=== PATIENT | male | born 1955 | race Caucasian/White ===

== ENCOUNTER 2019-04-09 08:50 | Day surgery (SDC) | payer MEDICAID ==
[2019-04-09] MEDS ORDERED: LIDOcaine 2% 5ml jelly ONE (09:48)
== END 2019-04-09 11:00 | disposition home or self-care (01) ==
LOC: WOUND CARE 08:50
PROVIDERS: ATTEND Surgery
DX: T87.81 Dehiscence of amputation stump (principal); L97.512 Non-pressure chronic ulcer of other part of right foot with fat layer exposed; M19.90 Unspecified osteoarthritis, unspecified site; Y83.5 Amputation of limb(s) as the cause of abnormal reaction of the patient, or of later complication, without mention of misadventure at the time of the procedure
CPT/HCPCS: 36416; 82948; 97597; A6209; A6223; L3260; A4663; A6021; A6446

== ENCOUNTER 2019-04-16 11:05 | Outpatient (CLI) | payer MEDICAID ==
--- NOTE | 2019-04-16 12:00 | NUR ---
BLOOD GLUCOSE 149. FAILED TO CROSS OVER TO MEDITECH - READING DOCUMENTED IN WOUND EXPERT ON 04/16/19 UNDER THE SAME V#.
== END 2019-04-16 11:52 | disposition home or self-care (01) ==
LOC: WOUND CARE 11:05 → EDSTATUS 11:30 → WOUND CARE 11:52
PROVIDERS: ATTEND Surgery
DX: T87.81 Dehiscence of amputation stump (principal); L97.512 Non-pressure chronic ulcer of other part of right foot with fat layer exposed; M19.90 Unspecified osteoarthritis, unspecified site; Y83.5 Amputation of limb(s) as the cause of abnormal reaction of the patient, or of later complication, without mention of misadventure at the time of the procedure
CPT/HCPCS: 36416; A6209; G0463; L3260; A4663; A6021; A6154; A6446

== ENCOUNTER 2019-04-26 11:15 | Day surgery (SDC) | payer MEDICAID | END 2019-04-26 12:58 | disposition home or self-care (01) | LOC: WOUND CARE 11:15 | PROVIDERS: ATTEND Surgery | DX: T87.81 Dehiscence of amputation stump (principal); L97.512 Non-pressure chronic ulcer of other part of right foot with fat layer exposed; M19.90 Unspecified osteoarthritis, unspecified site; Y83.5 Amputation of limb(s) as the cause of abnormal reaction of the patient, or of later complication, without mention of misadventure at the time of the procedure | CPT/HCPCS: 11042; 36416; 82948; A6209; A4663; A6021; A6154; A6446 ==

== ENCOUNTER 2019-05-04 10:12 | Outpatient (CLI) | payer MEDICAID | END 2019-05-04 11:20 | disposition home or self-care (01) | LOC: WOUND CARE 10:12 → EDSTATUS 10:30 → WOUND CARE 11:20 | PROVIDERS: ATTEND Surgery | DX: T87.81 Dehiscence of amputation stump (principal); L97.512 Non-pressure chronic ulcer of other part of right foot with fat layer exposed; M19.90 Unspecified osteoarthritis, unspecified site; Y83.5 Amputation of limb(s) as the cause of abnormal reaction of the patient, or of later complication, without mention of misadventure at the time of the procedure | CPT/HCPCS: 36416; 82948; A6209; G0463; A4663; A6446 ==

== ENCOUNTER 2019-05-10 10:05 | Day surgery (SDC) | payer MEDICAID ==
[2019-05-10] MEDS ORDERED: LIDOcaine 2% 5ml jelly ONE (11:17)
== END 2019-05-10 12:25 | disposition home or self-care (01) ==
LOC: WOUND CARE 10:05
PROVIDERS: ATTEND Surgery
DX: T87.81 Dehiscence of amputation stump (principal); L97.512 Non-pressure chronic ulcer of other part of right foot with fat layer exposed; M19.90 Unspecified osteoarthritis, unspecified site; Y83.5 Amputation of limb(s) as the cause of abnormal reaction of the patient, or of later complication, without mention of misadventure at the time of the procedure
CPT/HCPCS: 36416; 82948; 97597

== ENCOUNTER 2019-05-17 09:55 | Day surgery (SDC) | payer MEDICAID ==
[2019-05-17] MEDS ORDERED: LIDOcaine 2% 5ml jelly ONE (10:09)
== END 2019-05-17 11:00 | disposition home or self-care (01) ==
LOC: WOUND CARE 09:55
PROVIDERS: ATTEND Surgery
DX: T87.81 Dehiscence of amputation stump (principal); L97.512 Non-pressure chronic ulcer of other part of right foot with fat layer exposed; M19.90 Unspecified osteoarthritis, unspecified site; Y83.5 Amputation of limb(s) as the cause of abnormal reaction of the patient, or of later complication, without mention of misadventure at the time of the procedure
CPT/HCPCS: 36416; 82948; 97597; A6209; A4663; A6021; A6154; A6446

== ENCOUNTER 2019-05-25 09:10 | Day surgery (SDC) | payer MEDICAID | END 2019-05-25 11:05 | disposition home or self-care (01) | LOC: WOUND CARE 09:10 | PROVIDERS: ATTEND Surgery | DX: T87.81 Dehiscence of amputation stump (principal); L97.512 Non-pressure chronic ulcer of other part of right foot with fat layer exposed; M19.90 Unspecified osteoarthritis, unspecified site; Y83.5 Amputation of limb(s) as the cause of abnormal reaction of the patient, or of later complication, without mention of misadventure at the time of the procedure | CPT/HCPCS: 36416; 82948; 97597; A4663; A6021; A6154; A6212; A6446 ==

== ENCOUNTER 2019-06-01 09:30 | Day surgery (SDC) | payer MEDICAID | END 2019-06-01 11:22 | disposition home or self-care (01) | LOC: WOUND CARE 09:30 | PROVIDERS: ATTEND Surgery | DX: T87.81 Dehiscence of amputation stump (principal); L97.512 Non-pressure chronic ulcer of other part of right foot with fat layer exposed; M19.90 Unspecified osteoarthritis, unspecified site; Y83.5 Amputation of limb(s) as the cause of abnormal reaction of the patient, or of later complication, without mention of misadventure at the time of the procedure | CPT/HCPCS: 15275; 36416; 82948; A6209; A6222; Q4186; A4663; A6446 ==

== ENCOUNTER 2019-06-13 09:53 | Day surgery (SDC) | payer MEDICAID | END 2019-06-13 11:04 | disposition home or self-care (01) | LOC: WOUND CARE 09:53 | PROVIDERS: ATTEND Surgery | DX: T87.81 Dehiscence of amputation stump (principal); L97.512 Non-pressure chronic ulcer of other part of right foot with fat layer exposed; M19.90 Unspecified osteoarthritis, unspecified site; Y83.5 Amputation of limb(s) as the cause of abnormal reaction of the patient, or of later complication, without mention of misadventure at the time of the procedure | CPT/HCPCS: 15275; 36416; 82948; A6209; A6222; Q4186; A4663; A6250; A6446 ==

== ENCOUNTER 2019-06-20 09:52 | Outpatient (CLI) | payer MEDICAID | END 2019-06-20 11:32 | disposition home or self-care (01) | LOC: WOUND CARE 09:52 → EDSTATUS 10:00 → WOUND CARE 11:32 | PROVIDERS: ATTEND Surgery | DX: T87.81 Dehiscence of amputation stump (principal); E11.621 Type 2 diabetes mellitus with foot ulcer; L97.512 Non-pressure chronic ulcer of other part of right foot with fat layer exposed; E11.40 Type 2 diabetes mellitus with diabetic neuropathy, unspecified; E11.65 Type 2 diabetes mellitus with hyperglycemia; M19.90 Unspecified osteoarthritis, unspecified site; Y83.5 Amputation of limb(s) as the cause of abnormal reaction of the patient, or of later complication, without mention of misadventure at the time of the procedure | CPT/HCPCS: 36416; 82948; A6209; A6222; G0463; A4663; A6021; A6446 ==

== ENCOUNTER 2019-06-25 10:55 | Day surgery (SDC) | payer MEDICAID ==
[2019-06-25] MEDS ORDERED: LIDOcaine 2% 5ml jelly ONE (11:12)
== END 2019-06-25 11:57 | disposition home or self-care (01) ==
LOC: WOUND CARE 10:55
PROVIDERS: ATTEND Surgery
DX: T87.81 Dehiscence of amputation stump (principal); E11.621 Type 2 diabetes mellitus with foot ulcer; L97.512 Non-pressure chronic ulcer of other part of right foot with fat layer exposed; E11.40 Type 2 diabetes mellitus with diabetic neuropathy, unspecified; E11.65 Type 2 diabetes mellitus with hyperglycemia; M19.90 Unspecified osteoarthritis, unspecified site; Y83.5 Amputation of limb(s) as the cause of abnormal reaction of the patient, or of later complication, without mention of misadventure at the time of the procedure
CPT/HCPCS: 15275; 36416; 82948; A6209; A6222; Q4186; A4663; A6250; A6446

== ENCOUNTER 2019-07-04 10:00 | Outpatient (CLI) | payer MEDICAID ==
[2019-07-04] MEDS ORDERED: LIDOcaine 2% 5ml jelly ONE (10:16)
== END 2019-07-04 11:36 | disposition home or self-care (01) ==
LOC: WOUND CARE 10:00 → EDSTATUS 10:00 → WOUND CARE 11:36
PROVIDERS: ATTEND Surgery
DX: T87.81 Dehiscence of amputation stump (principal); E11.621 Type 2 diabetes mellitus with foot ulcer; L97.512 Non-pressure chronic ulcer of other part of right foot with fat layer exposed; E11.40 Type 2 diabetes mellitus with diabetic neuropathy, unspecified; E11.65 Type 2 diabetes mellitus with hyperglycemia; M19.90 Unspecified osteoarthritis, unspecified site; Y83.5 Amputation of limb(s) as the cause of abnormal reaction of the patient, or of later complication, without mention of misadventure at the time of the procedure
CPT/HCPCS: 36416; 82948; G0463; A4663; A6021; A6154; A6212; A6446

== ENCOUNTER 2019-07-10 10:20 | Day surgery (SDC) | payer MEDICAID ==
[2019-07-10] MEDS ORDERED: LIDOcaine/PRILOcaine 5gm cream TP ONE (11:04)
== END 2019-07-10 12:41 | disposition home or self-care (01) ==
LOC: WOUND CARE 10:20
PROVIDERS: ATTEND Surgery
DX: T87.81 Dehiscence of amputation stump (principal); E11.621 Type 2 diabetes mellitus with foot ulcer; L97.512 Non-pressure chronic ulcer of other part of right foot with fat layer exposed; E11.40 Type 2 diabetes mellitus with diabetic neuropathy, unspecified; E11.65 Type 2 diabetes mellitus with hyperglycemia; M19.90 Unspecified osteoarthritis, unspecified site; Y83.5 Amputation of limb(s) as the cause of abnormal reaction of the patient, or of later complication, without mention of misadventure at the time of the procedure
CPT/HCPCS: 36416; 82948; 97597; A6209; A4663; A6021; A6154; A6446

== ENCOUNTER 2019-07-18 08:22 | Day surgery (SDC) | payer MEDICAID ==
[2019-07-18] MEDS ORDERED: LIDOcaine 2% 5ml jelly ONE (09:37)
== END 2019-07-18 10:34 | disposition home or self-care (01) ==
LOC: WOUND CARE 08:22
PROVIDERS: ATTEND Surgery
DX: T87.81 Dehiscence of amputation stump (principal); E11.621 Type 2 diabetes mellitus with foot ulcer; L97.512 Non-pressure chronic ulcer of other part of right foot with fat layer exposed; E11.40 Type 2 diabetes mellitus with diabetic neuropathy, unspecified; E11.65 Type 2 diabetes mellitus with hyperglycemia; M19.90 Unspecified osteoarthritis, unspecified site; Y83.5 Amputation of limb(s) as the cause of abnormal reaction of the patient, or of later complication, without mention of misadventure at the time of the procedure
CPT/HCPCS: 15275; 36416; 82948; A6209; A6222; Q4186; A4663; A6250; A6446

== ENCOUNTER 2019-08-02 10:25 | Day surgery (SDC) | payer MEDICAID ==
[2019-08-02] MEDS ORDERED: LIDOcaine 2% 5ml jelly ONE (10:44)
== END 2019-08-02 11:45 | disposition home or self-care (01) ==
LOC: WOUND CARE 10:25
PROVIDERS: ATTEND Nurse Practitioner Family
DX: T87.81 Dehiscence of amputation stump (principal); E11.621 Type 2 diabetes mellitus with foot ulcer; L97.512 Non-pressure chronic ulcer of other part of right foot with fat layer exposed; E11.40 Type 2 diabetes mellitus with diabetic neuropathy, unspecified; E11.65 Type 2 diabetes mellitus with hyperglycemia; M19.90 Unspecified osteoarthritis, unspecified site; Y83.5 Amputation of limb(s) as the cause of abnormal reaction of the patient, or of later complication, without mention of misadventure at the time of the procedure
CPT/HCPCS: 36416; 82948; 97597; A6209; A4663; A6021; A6154; A6234; A6446

== ENCOUNTER 2019-08-08 09:50 | Day surgery (SDC) | payer MEDICAID | END 2019-08-08 12:00 | disposition home or self-care (01) | LOC: WOUND CARE 09:50 | PROVIDERS: ATTEND Surgery | DX: T87.81 Dehiscence of amputation stump (principal); E11.621 Type 2 diabetes mellitus with foot ulcer; L97.512 Non-pressure chronic ulcer of other part of right foot with fat layer exposed; E11.40 Type 2 diabetes mellitus with diabetic neuropathy, unspecified; E11.65 Type 2 diabetes mellitus with hyperglycemia; M19.90 Unspecified osteoarthritis, unspecified site; Y83.5 Amputation of limb(s) as the cause of abnormal reaction of the patient, or of later complication, without mention of misadventure at the time of the procedure | CPT/HCPCS: 82948; G0463; A4663; A6234; A6446 ==

== ENCOUNTER 2019-08-22 10:05 | Outpatient (CLI) | payer MEDICAID | END 2019-08-22 11:30 | disposition home or self-care (01) | LOC: WOUND CARE 10:05 | PROVIDERS: ATTEND Surgery | DX: T87.81 Dehiscence of amputation stump (principal); E11.621 Type 2 diabetes mellitus with foot ulcer; L97.512 Non-pressure chronic ulcer of other part of right foot with fat layer exposed; E11.40 Type 2 diabetes mellitus with diabetic neuropathy, unspecified; E11.65 Type 2 diabetes mellitus with hyperglycemia; M19.90 Unspecified osteoarthritis, unspecified site; Y83.5 Amputation of limb(s) as the cause of abnormal reaction of the patient, or of later complication, without mention of misadventure at the time of the procedure | CPT/HCPCS: 36416; 82948; G0463; A4663 ==

== ENCOUNTER 2020-01-30 13:20 | Day surgery (SDC) | payer MEDICAID ==
[2020-01-30] MEDS ORDERED: LIDOcaine 2% 5ml jelly ONE (13:46)
[2020-01-30 14:34] LABS: BASOPHILS % (AUTO) 0.6 % (0-1); EOSINOPHILS # (AUTO) 0.1 X10'3 (0-0.9); EOSINOPHILS % (AUTO) 1.7 % (0-6); HEMATOCRIT 42.8 % (42.0-52.0); HEMOGLOBIN 14.6 g/dl (14.0-17.9); LYMPHOCYTES # (AUTO) 1.5 X10'3 (1.1-4.8); LYMPHOCYTES % (AUTO) 26.4 % (21-51); MEAN CORPUSCULAR HEMOGLOBIN 29.4 PG (27.0-31.0); MEAN CORPUSCULAR HGB CONC 34.1 g/dL (33.0-36.5); MEAN CORPUSCULAR VOLUME 86.4 FL (78-98); MONOCYTES # (AUTO) 0.4 X10'3 (0-0.9); MONOCYTES % (AUTO) 7.4 % (2-12); NEUTROPHILS # (AUTO) 3.5 X10'3 (1.8-7.7); NEUTROPHILS % (AUTO) 63.9 % (42-75); PLATELET COUNT 222 X10'3 (140-440); RED BLOOD COUNT 4.96 X10'6 (4.70-6.10); WHITE BLOOD COUNT 5.5 X10'3 (4.5-11.0)
[2020-01-30 14:45] LABS: ALANINE AMINOTRANSFERASE 22 U/L (12-78); ALBUMIN 4.1 G/DL (3.4-5.0); ALBUMIN/GLOBULIN RATIO 0.9 (1.1-1.5); ALKALINE PHOSPHATASE 79 IU/L (46-116); ANION GAP 10 (8-16); ASPARTATE AMINO TRANSFERASE 14 U/L (10-37); BILIRUBIN,TOTAL 0.5 MG/DL (0.1-1.0); BLOOD UREA NITROGEN 18 MG/DL (7-18); BUN/CREATININE RATIO 15.3 (5.4-32.0); C-REACTIVE PROTEIN 0.08 MG/DL (0.0-0.5); CALCIUM 9.3 MG/DL (8.5-10.1); CHLORIDE 102 MMOL/L (99-107); CREATININE 1.18 MG/DL (0.60-1.10); GLUCOSE 207 MG/DL (70-104); POTASSIUM 4.5 MMOL/L (3.5-5.1); SODIUM 139 MMOL/L (135-145); TOTAL CARBON DIOXIDE 26.9 MMOL/L (24-32); TOTAL PROTEIN 8.5 G/DL (6.4-8.2); eGFR 63 ML/MIN
[2020-01-30 15:09] LABS: HEMOGLOBIN A1C 9.3 % (4.5-6.2)
== END 2020-01-30 14:35 | disposition home or self-care (01) ==
LOC: WOUND CARE 13:20
PROVIDERS: ATTEND Nurse Practitioner
DX: T87.81 Dehiscence of amputation stump (principal); E11.621 Type 2 diabetes mellitus with foot ulcer; L97.512 Non-pressure chronic ulcer of other part of right foot with fat layer exposed; E11.40 Type 2 diabetes mellitus with diabetic neuropathy, unspecified; E11.65 Type 2 diabetes mellitus with hyperglycemia; M19.90 Unspecified osteoarthritis, unspecified site; Y83.5 Amputation of limb(s) as the cause of abnormal reaction of the patient, or of later complication, without mention of misadventure at the time of the procedure
CPT/HCPCS: 36415; 36416; 73620; 80053; 82948; 83036; 85025; 85651; 86140; 97597

== ENCOUNTER 2020-02-06 09:55 | Day surgery (SDC) | payer MEDICARE, MEDICAID | END 2020-02-06 12:25 | disposition home or self-care (01) | LOC: WOUND CARE 09:55 | PROVIDERS: ATTEND Nurse Practitioner | DX: T87.81 Dehiscence of amputation stump (principal); E11.621 Type 2 diabetes mellitus with foot ulcer; L97.512 Non-pressure chronic ulcer of other part of right foot with fat layer exposed; E11.40 Type 2 diabetes mellitus with diabetic neuropathy, unspecified; E11.65 Type 2 diabetes mellitus with hyperglycemia; M19.90 Unspecified osteoarthritis, unspecified site; Y83.5 Amputation of limb(s) as the cause of abnormal reaction of the patient, or of later complication, without mention of misadventure at the time of the procedure | CPT/HCPCS: 36416; 82948; 87070; 87075; 87102; 93970; 97597 ==

== ENCOUNTER 2020-02-15 10:24 | Day surgery (SDC) | payer MEDICARE, MEDICAID | END 2020-02-15 12:37 | disposition home or self-care (01) | LOC: WOUND CARE 10:24 | PROVIDERS: ATTEND Nurse Practitioner | DX: T87.89 Other complications of amputation stump (principal); E11.621 Type 2 diabetes mellitus with foot ulcer; L97.512 Non-pressure chronic ulcer of other part of right foot with fat layer exposed; E11.40 Type 2 diabetes mellitus with diabetic neuropathy, unspecified; E11.65 Type 2 diabetes mellitus with hyperglycemia; M19.90 Unspecified osteoarthritis, unspecified site; Y83.5 Amputation of limb(s) as the cause of abnormal reaction of the patient, or of later complication, without mention of misadventure at the time of the procedure | CPT/HCPCS: 36416; 82948; 93922; 93925; 97597 ==

== ENCOUNTER 2020-02-22 10:31 | Day surgery (SDC) | payer MEDICARE, MEDICAID | END 2020-02-22 12:25 | disposition home or self-care (01) | LOC: WOUND CARE 10:31 | PROVIDERS: ATTEND Nurse Practitioner | DX: T87.89 Other complications of amputation stump (principal); E11.621 Type 2 diabetes mellitus with foot ulcer; L97.512 Non-pressure chronic ulcer of other part of right foot with fat layer exposed; E11.40 Type 2 diabetes mellitus with diabetic neuropathy, unspecified; E11.65 Type 2 diabetes mellitus with hyperglycemia; M19.90 Unspecified osteoarthritis, unspecified site; Y83.5 Amputation of limb(s) as the cause of abnormal reaction of the patient, or of later complication, without mention of misadventure at the time of the procedure | CPT/HCPCS: 36416; 82948; 97597 ==

== ENCOUNTER 2020-03-28 10:50 | Day surgery (SDC) | payer MEDICARE, MEDICAID | END 2020-03-28 13:27 | disposition home or self-care (01) | LOC: WOUND CARE 10:50 | PROVIDERS: ATTEND Nurse Practitioner | DX: T87.89 Other complications of amputation stump (principal); E11.621 Type 2 diabetes mellitus with foot ulcer; L97.512 Non-pressure chronic ulcer of other part of right foot with fat layer exposed; E11.40 Type 2 diabetes mellitus with diabetic neuropathy, unspecified; E11.65 Type 2 diabetes mellitus with hyperglycemia; M19.90 Unspecified osteoarthritis, unspecified site; Y83.5 Amputation of limb(s) as the cause of abnormal reaction of the patient, or of later complication, without mention of misadventure at the time of the procedure | CPT/HCPCS: 36416; 82948; 97597 ==

== ENCOUNTER 2020-04-04 11:12 | Day surgery (SDC) | payer MEDICARE, MEDICAID | END 2020-04-04 12:17 | disposition home or self-care (01) | LOC: WOUND CARE 11:12 | PROVIDERS: ATTEND Nurse Practitioner | DX: T87.89 Other complications of amputation stump (principal); E11.621 Type 2 diabetes mellitus with foot ulcer; L97.512 Non-pressure chronic ulcer of other part of right foot with fat layer exposed; E11.622 Type 2 diabetes mellitus with other skin ulcer; L97.222 Non-pressure chronic ulcer of left calf with fat layer exposed; S81.002D Unspecified open wound, left knee, subsequent encounter; S81.802D Unspecified open wound, left lower leg, subsequent encounter; E11.40 Type 2 diabetes mellitus with diabetic neuropathy, unspecified; E11.65 Type 2 diabetes mellitus with hyperglycemia; M19.90 Unspecified osteoarthritis, unspecified site; Y83.5 Amputation of limb(s) as the cause of abnormal reaction of the patient, or of later complication, without mention of misadventure at the time of the procedure; W01.0XXD Fall on same level from slipping, tripping and stumbling without subsequent striking against object, subsequent encounter | CPT/HCPCS: 15275; 36416; Q4196 ==

== ENCOUNTER → 2020-04-10 | Day surgery (SDC) | payer MEDICARE, MEDICAID | END | disposition home or self-care (01) | LOC: WOUND CARE 10:06 | PROVIDERS: ATTEND Nurse Practitioner | DX: T87.89 Other complications of amputation stump (principal); E11.621 Type 2 diabetes mellitus with foot ulcer; L97.512 Non-pressure chronic ulcer of other part of right foot with fat layer exposed; E11.622 Type 2 diabetes mellitus with other skin ulcer; L97.222 Non-pressure chronic ulcer of left calf with fat layer exposed; S81.002D Unspecified open wound, left knee, subsequent encounter; S81.802D Unspecified open wound, left lower leg, subsequent encounter; E11.40 Type 2 diabetes mellitus with diabetic neuropathy, unspecified; E11.65 Type 2 diabetes mellitus with hyperglycemia; M19.90 Unspecified osteoarthritis, unspecified site; Y83.5 Amputation of limb(s) as the cause of abnormal reaction of the patient, or of later complication, without mention of misadventure at the time of the procedure; W01.0XXD Fall on same level from slipping, tripping and stumbling without subsequent striking against object, subsequent encounter | CPT/HCPCS: 97597 ==

== ENCOUNTER 2020-04-18 10:52 | Day surgery (SDC) | payer MEDICARE, MEDICAID ==
[2020-04-18] MEDS ORDERED: LIDOcaine 2% 5ml jelly ONE (11:15)
== END 2020-04-18 12:02 | disposition home or self-care (01) ==
LOC: WOUND CARE 10:52
PROVIDERS: ATTEND Nurse Practitioner
DX: T87.89 Other complications of amputation stump (principal); E11.621 Type 2 diabetes mellitus with foot ulcer; L97.512 Non-pressure chronic ulcer of other part of right foot with fat layer exposed; E11.622 Type 2 diabetes mellitus with other skin ulcer; L97.222 Non-pressure chronic ulcer of left calf with fat layer exposed; S81.002D Unspecified open wound, left knee, subsequent encounter; S81.802D Unspecified open wound, left lower leg, subsequent encounter; E11.40 Type 2 diabetes mellitus with diabetic neuropathy, unspecified; E11.65 Type 2 diabetes mellitus with hyperglycemia; M19.90 Unspecified osteoarthritis, unspecified site; Y83.5 Amputation of limb(s) as the cause of abnormal reaction of the patient, or of later complication, without mention of misadventure at the time of the procedure; W01.0XXD Fall on same level from slipping, tripping and stumbling without subsequent striking against object, subsequent encounter
CPT/HCPCS: 36416; 82948; 97597

== ENCOUNTER 2020-04-23 10:40 | Day surgery (SDC) | payer MEDICARE, MEDICAID ==
[2020-04-23] MEDS ORDERED: LIDOcaine 2% 5ml jelly ONE (10:46)
== END 2020-04-23 11:27 | disposition home or self-care (01) ==
LOC: WOUND CARE 10:40
PROVIDERS: ATTEND Nurse Practitioner
DX: E11.621 Type 2 diabetes mellitus with foot ulcer (principal); L97.512 Non-pressure chronic ulcer of other part of right foot with fat layer exposed; E11.622 Type 2 diabetes mellitus with other skin ulcer; L97.222 Non-pressure chronic ulcer of left calf with fat layer exposed; S81.802D Unspecified open wound, left lower leg, subsequent encounter; E11.40 Type 2 diabetes mellitus with diabetic neuropathy, unspecified; E11.65 Type 2 diabetes mellitus with hyperglycemia; M19.90 Unspecified osteoarthritis, unspecified site; X58.XXXD Exposure to other specified factors, subsequent encounter
CPT/HCPCS: 97597

== ENCOUNTER 2020-04-30 11:25 | Day surgery (SDC) | payer MEDICARE, MEDICAID | END 2020-04-30 13:11 | disposition home or self-care (01) | LOC: WOUND CARE 11:25 | PROVIDERS: ATTEND Nurse Practitioner | DX: T87.89 Other complications of amputation stump (principal); E11.621 Type 2 diabetes mellitus with foot ulcer; L97.512 Non-pressure chronic ulcer of other part of right foot with fat layer exposed; S81.002D Unspecified open wound, left knee, subsequent encounter; E11.40 Type 2 diabetes mellitus with diabetic neuropathy, unspecified; E11.65 Type 2 diabetes mellitus with hyperglycemia; M19.90 Unspecified osteoarthritis, unspecified site; L84 Corns and callosities; Y83.5 Amputation of limb(s) as the cause of abnormal reaction of the patient, or of later complication, without mention of misadventure at the time of the procedure; W01.0XXD Fall on same level from slipping, tripping and stumbling without subsequent striking against object, subsequent encounter | CPT/HCPCS: 15275; Q4196 ==

== ENCOUNTER 2020-05-07 11:30 | Day surgery (SDC) | payer MEDICARE, MEDICAID | END 2020-05-07 12:05 | disposition home or self-care (01) | LOC: WOUND CARE 11:30 | PROVIDERS: ATTEND Nurse Practitioner | DX: T87.89 Other complications of amputation stump (principal); E11.621 Type 2 diabetes mellitus with foot ulcer; L97.512 Non-pressure chronic ulcer of other part of right foot with fat layer exposed; E11.622 Type 2 diabetes mellitus with other skin ulcer; L97.222 Non-pressure chronic ulcer of left calf with fat layer exposed; S81.002D Unspecified open wound, left knee, subsequent encounter; E11.40 Type 2 diabetes mellitus with diabetic neuropathy, unspecified; E11.65 Type 2 diabetes mellitus with hyperglycemia; M19.90 Unspecified osteoarthritis, unspecified site; L84 Corns and callosities; W01.0XXD Fall on same level from slipping, tripping and stumbling without subsequent striking against object, subsequent encounter | CPT/HCPCS: 36416; 82948; 97597 ==